=== PATIENT | male | born 1975 | race Two or more races ===

== ENCOUNTER 2025-06-21 12:55 | Day surgery (SDC) | payer MEDICAID, SELFPAY ==
[2025-06-20 13:21] VITALS: BMI 20.5
[2025-06-21] VITALS (10 sets, daily range): BP systolic 109–130; BP diastolic 61–78; PULSE 58–83; RESP 12–19; TEMP 37–37.2; O2SAT 95–100; BMI 20.5
[2025-06-21] MEDS: fentaNYL CIT INJ 50 mCg/ML AMP 2ML (ASD USE ONLY) IVP (14:25)
[2025-06-21] MEDS: RINGERS LACTATED 1000 ML 1,000 ML 100 ML IV (14:25)
[2025-06-21] MEDS: MIDAZOLAM INJ 1 MG/ML VIAL 2 ML (ASD USE ONLY) 2 MG IVP (14:28)
== END 2025-06-21 15:25 | disposition home or self-care (01) ==
PROVIDERS: Referring Provider Surgery; Visit Provider Surgery
PROC: 0DBE8ZX Excision of Large Intestine, Via Natural or Artificial Opening Endoscopic, Diagnostic (ICD-10-PCS; CPT 45380; principal; 2025-06-21 14:30)
DX: Z12.11 Encounter for screening for malignant neoplasm of colon (principal); I10 Essential (primary) hypertension
CPT/HCPCS: 45378; J2250; J3010; J7120